=== PATIENT | male | born 1960 | race Caucasian/White ===

== ENCOUNTER 2016-08-26 19:10 | Emergency (ER) | payer OTHER ==
[2016-08-26 19:17] VITALS: TEMP 98.5
[2016-08-26] MEDS ORDERED: Naproxen 550 mg Tab PO STA (19:30)
[2016-08-26] MEDS ORDERED: Naproxen 550 mg Tab PO ONE (19:39)
--- NOTE | 2016-08-26 19:47 | C.PDOC ---
History Of Present Illness 56 yo male c/o right knee pain for 5 + months. Over the last 2 weeks, pain worsened. Pt has been massaging it for relief but last week he massaged to hard and noticed he broke skin. Notes the wound has been looking better. No discharge. No increased redness. Pt was evaluated by his PMD "months ago" and was prescribed unknown pain medication. 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 No change in sensation. No direct trauma. Has not tried any OTC medication. Time Seen by Provider: 08/26/16 19:19 Chief Complaint (Nursing): Lower Extremity Problem/Injury History Per: Patient, Carpenter Repairer History/Exam Limitations: no limitations Onset/Duration Of Symptoms: Intermittent Episodes Past Medical History Vital Signs: Last Vital Signs Temp 98.5 F 08/26/16 19:11 Pulse 77 08/26/16 20:29 Resp 18 08/26/16 20:29 BP 135/75 08/26/16 20:29 Pulse Ox 99 08/26/16 20:29 - Medical History PMH: Hypercholesterolemia Denies: Chronic Kidney Disease Family History: States: Unknown Family Hx - Social History Hx Tobacco Use: No Hx Alcohol Use: No Hx Substance Use: No - Immunization History Hx Tetanus Toxoid Vaccination: No Hx Influenza Vaccination: No Hx Pneumococcal Vaccination: No Review Of Systems Except As Marked, All Systems Reviewed And Found Negative. Physical Exam - Physical Exam Appears: Well, Non-toxic, No Acute Distress Skin: Warm, Dry, Other ((+) 1 cm healing wound with min erythema to the lateral knee, no discharge. ) Head: Atraumatic, Normacephalic Eye(s): bilateral: Normal Inspection, EOMI Nose: Normal Oral Mucosa: Moist Neck: Normal Chest: Symmetrical Respiratory: No Accessory Muscle Use Back: Normal Inspection Extremity: Normal ROM, No Tenderness, No Pedal Edema, No Calf Tenderness, Swelling (lateral) Extremity: Bilateral: Normal Color And Temperature, Normal ROM Pulses: Left Dorsalis Pedis: Normal, Right Dorsalis Pedis: Normal Neurological/Psych: Oriented x3, Normal Speech, Normal Motor, Normal Sensation Gait: Steady ED Course And Treatment O2 Sat by Pulse Oximetry: 98 - Other Rad Knee XR Interpretation: no fx or dislcoation Progress Note: Keflex and Naprosyn given. Brace applied by air launch weapons technician. Pt was instructed wound care, RICe and signs of concern for increasing infection. Instructed ortho follow up in 1-2 days for further evaluation. Disposition - Disposition Referrals: Sam Reed MD [Staff Provider] - Disposition: HOME/ ROUTINE Disposition Time: 19:50 Condition: STABLE Additional Instructions: Vaya a pro mdico o la clnica en 2-5 early sin falta, para mas evaluacin. Andres los medicamentos kim indicado. Volver a la sonia de emergencia en cualquier momento si los sntomas persisten o empeoran. Prescriptions: Cephalexin [cephalexin] 500 mg PO BID #14 cap Naproxen [Naprosyn] 1 tab PO BID PRN #20 tab PRN Reason: Pain Instructions: Knee Pain (ED) Print Language: GIBRALTARIAN - Clinical Impression Clinical Impression: Knee pain
[2016-08-26 20:30] VITALS: BP 135/75; PULSE 77; RESP 18
[2016-08-26 21:14] VITALS: O2SAT 98
--- NOTE | 2016-08-27 07:23 | RAD ---
Right knee three views History: Pain. Comparison: None available. Findings: No evidence for acute displaced fracture or dislocation. No significant suprapatellar joint effusion. Impression: Negative acute. If pain persists, consider MRI.
== END 2016-08-26 20:31 | disposition home or self-care (01) ==
LOC: C.ER 19:10
DX: M25.561 Pain in right knee (principal)

== ENCOUNTER 2018-02-05 08:42 | Emergency (ER) | payer MEDICAID, OTHER ==
[2018-02-05 08:45] VITALS: BMI 27.2
[2018-02-05 08:49] VITALS: RESP 18; TEMP 98.2; O2SAT 98
--- NOTE | 2018-02-05 09:24 | C.PDOC ---
History Of Present Illness 57 years old male presents to ED for complaints of developing right lower back pain that radiates to right posterior thigh 6 days ago s/p lifting a heavy heavy box. Denies urinary bowel incontinence, weakness, numbness, or any other complaints. Patient also denies taking any medication for pain. Time Seen by Provider: 02/05/18 08:51 Chief Complaint (Nursing): Back Pain History Per: Patient History/Exam Limitations: no limitations Onset/Duration Of Symptoms: Days (6) Current Symptoms Are (Timing): Still Present Severity: None Previous Symptoms: Back Pain Associated Symptoms: None Exacerbating Factor(s): Nothing Recent travel outside of the [place]: No Past Medical History Reviewed: Historical Data, Nursing Documentation, Vital Signs Vital Signs: Last Vital Signs Temp 98.2 F 02/05/18 08:46 Pulse 63 02/05/18 08:46 Resp 18 02/05/18 08:46 BP 138/82 02/05/18 08:46 Pulse Ox 98 02/05/18 08:46 - Medical History PMH: Hypercholesterolemia Denies: Chronic Kidney Disease Surgical History: No Surg Hx Family History: States: Unknown Family Hx - Social History Hx Tobacco Use: No Hx Alcohol Use: No Hx Substance Use: No - Immunization History Hx Tetanus Toxoid Vaccination: No Hx Influenza Vaccination: No Hx Pneumococcal Vaccination: No Review Of Systems Constitutional: Negative for: Fever, Chills Gastrointestinal: Negative for: Nausea, Vomiting, Diarrhea Genitourinary: Negative for: Incontinence Musculoskeletal: Positive for: Back Pain Skin: Negative for: Rash Neurological: Negative for: Weakness, Numbness Physical Exam - Physical Exam Appears: Well, Non-toxic, No Acute Distress Skin: Normal Color, Warm, Dry, No Rash Head: Atraumatic, Normacephalic Eye(s): bilateral: Normal Inspection, PERRL, EOMI Oral Mucosa: Moist Neck: Normal, Normal ROM, Supple Chest: Symmetrical, No Tenderness Cardiovascular: Rhythm Regular Respiratory: Normal Breath Sounds, No Rales, No Rhonchi, No Wheezing Gastrointestinal/Abdominal: Soft, No Tenderness Back: No CVA Tenderness, No Vertebral Tenderness, Straight Leg Raising (Negative ), Other (Point tenderness to right lower back ) Extremity: Normal ROM Extremity: Bilateral: Atraumatic, Normal Color And Temperature, Normal ROM Neurological/Psych: Oriented x3, Normal Speech, Normal Motor, Normal Sensation Gait: Steady ED Course And Treatment O2 Sat by Pulse Oximetry: 98 (RA) Pulse Ox Interpretation: Normal Reassessment Condition: Improved (pt ambulates with steady gait, speaks in full sentences) Medical Decision Making Medical Decision Making: Plan: * Patient was only administered Toradol because he has to drive home. Re-evaluation: * Patient is feeling much better and is stable for discharge. Patient advised to follow up with PMD on Tuesday for possible physical therapy referral, and patient is in agreement. Return if symptoms persist or acutely worsen. Otherwise, Patient is medically stable and ready for discharge. Disposition Counseled Patient/Family Regarding: Diagnosis, Need For Followup, Rx Given - Disposition Referrals: Pastor Machado MD [Medical Doctor] - Disposition: HOME/ ROUTINE Disposition Time: 09:19 Condition: GOOD Additional Instructions: FOLLOW UP WITH PMD ON TUESDAY FOR RE-EVALUATION AND POSSIBLE PHYSICAL THERAPY REFERRAL. IF SYMPTOMS GET WORSE, URINARY/BOWEL INCONTINENCE OR LEG WEAKNESS/NUMBNESS DEVELOP RETURN TO ED. 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 - Scribe Statement The provider has reviewed the documentation as recorded by the Renata Pearce All medical record entries made by the Josselynibmathieu were at my direction and personally dictated by me. I have reviewed the chart and agree that the record accurately reflects my personal performance of the history, physical exam, medical decision making, and the department course for this patient. I have also personally directed, reviewed, and agree with the discharge instructions and disposition.
[2018-02-05 09:53] VITALS: BP 132/89; PULSE 69
== END 2018-02-05 09:58 | disposition home or self-care (01) ==
LOC: C.ER 08:42
DX: M54.30 Sciatica, unspecified side (principal)
CPT/HCPCS: 96372; 99283; J1885